=== PATIENT | male | born 1960 | race Caucasian/White ===

== ENCOUNTER 2024-12-23 07:57 | Day surgery (SDC) | payer MEDICARE, OTHER ==
[2024-12-23] MEDS ORDERED: Sodium Chloride 0.9% 10 ML Syringe FLUSH PRN (08:00)
[2024-12-23] MEDS: Lactated Ringers 1,000 ML IV SCH (08:23)
[2024-12-23] MEDS ORDERED: Midazolam 1 MG/ML 2 ML SDV ONE (08:29)
[2024-12-23] MEDS ORDERED: Propofol 200 MG/20 ML SDV ONE (08:29)
== END 2024-12-23 11:22 | disposition home or self-care (01) ==
LOC: KA.SDS 07:57
PROVIDERS: ATTEND Family Medicine
DX: K57.30 Diverticulosis of large intestine without perforation or abscess without bleeding (principal); K64.8 Other hemorrhoids; Z86.0100 Personal history of colon polyps, unspecified; I10 Essential (primary) hypertension; E78.00 Pure hypercholesterolemia, unspecified; F33.42 Major depressive disorder, recurrent, in full remission; G47.33 Obstructive sleep apnea (adult) (pediatric); F41.9 Anxiety disorder, unspecified; E66.9 Obesity, unspecified; Z68.37 Body mass index [BMI] 37.0-37.9, adult; Z87.891 Personal history of nicotine dependence; Z79.899 Other long term (current) drug therapy
CPT/HCPCS: 00811; J2250; J2704; J7120